=== PATIENT | female | born 1960 | race Caucasian/White ===

== ENCOUNTER → 2017-02-14 | Outpatient (CLI) | payer MEDICARE, MEDICAID | END | disposition home or self-care (01) | LOC: PCVCCLINIC 13:00 | PROVIDERS: ATTEND Internal Medicine Cardiovascular Disease | DX: I44.0 Atrioventricular block, first degree (principal); I10 Essential (primary) hypertension; I48.0 Paroxysmal atrial fibrillation; K21.9 Gastro-esophageal reflux disease without esophagitis; E03.9 Hypothyroidism, unspecified; Z87.891 Personal history of nicotine dependence; Z88.0 Allergy status to penicillin; Z88.2 Allergy status to sulfonamides; Z79.82 Long term (current) use of aspirin | CPT/HCPCS: 36415; 93005; G0463 ==

== ENCOUNTER → 2017-03-14 | Outpatient (CLI) | payer MEDICARE, MEDICAID ==
--- NOTE | 2017-03-14 12:21 | PCVCIMAG ---
APPROVED REPORT Study performed: 03/14/2017 09:02:03 EXAM: Comprehensive 2D, Doppler, and color-flow Echocardiogram Patient Location: Echo lab Status: routine Other Information Study Quality: Good Risk Factors: Cardiac Risk Factors: HTN Indications Paroxysmal A Fib 2D Dimensions LVEF(%): 39.56 (>50%) IVSd: 10.32 (7-11mm) LVDd: 41.19 mm PWd: 9.80 (7-11mm) LVDs: 33.38 (25-40mm) Left Atrium: 37.36 (27-40mm) Aortic Root: 29.67 mm LV Single Plane 4CH: 56.35 % LV Single Plane 2CH: 66.97 %Dinero's LVEF: 61.66 % Biplane EF: 61.9 % Volumes Left Atrial Volume (Systole) Single Plane 4CH: 66.79 mLSingle Plane 2CH: 55.62 mL LA ESV Index: 31.00 mL/m2 Aortic Valve AoV Peak Fredy.: 1.55 m/s AO Peak Gr.: 9.63 mmHgLVOT Max P.00 mmHg LVOT Max V: 0.87 m/s Mitral Valve E/A Ratio: 0.8 MV Decel. Time: 256.90 ms MV E Max Fredy.: 0.70 m/s MV A Fredy.: 0.84 m/s IVRT: 100.35 ms Pulmonary Valve PV Peak Fredy.: 1.11 m/sPV Peak Gr.: 4.94 mmHg Pulmonary Vein P Vein S: 0.28 m/s P Vein D: 0.35 m/s P Vein S/D Ratio: 0.80 Tricuspid Valve TR Peak Fredy.: 2.06 m/s TR Peak Gr.: 16.93 mmHg Left Ventricle The left ventricle is normal size. There is normal LV segmental wall motion. There is normal left ventricular wall thickness. Left ventricular systolic function is normal. The left ventricular ejection fraction is within the normal range. LVEF is 55-60%. Grade I - abnormal relaxation pattern. Right Ventricle The right ventricle is normal size. The right ventricular systolic function is normal. Atria The left atrium size is normal. The right atrium size is normal. Aortic Valve The aortic valve is normal in structure. No aortic regurgitation is present. There is no aortic valvular stenosis. Mitral Valve The mitral valve is normal in structure. There is no mitral valve regurgitation noted. No evidence of mitral valve stenosis. Tricuspid Valve The tricuspid valve is normal in structure. Trace tricuspid regurgitation with PAP of 24 mmHg. Pulmonic Valve The pulmonary valve is normal in structure. There is no pulmonic valvular regurgitation. Great Vessels The aortic root is normal in size. IVC is normal in size and collapses with >50% inspiration Pericardium There is no pericardial effusion. <Conclusion> The left ventricle is normal size. Left ventricular systolic function is normal. Grade I - abnormal relaxation pattern. The right ventricle is normal size. The left atrium size is normal. The aortic valve is normal in structure. Trace tricuspid regurgitation with PAP of 24 mmHg.
== END | disposition home or self-care (01) ==
LOC: PCVCIMAG 08:58
PROVIDERS: ATTEND Internal Medicine Cardiovascular Disease
DX: I07.1 Rheumatic tricuspid insufficiency (principal); I48.0 Paroxysmal atrial fibrillation; I10 Essential (primary) hypertension
CPT/HCPCS: 93306

== ENCOUNTER → 2017-04-29 | Outpatient (CLI) | payer MEDICARE, MEDICAID ==
[~2017-04-29] MED LIST: BENZOCAINE ONE 20% MUCOSAL SPRAY.; IV NORMAL SALINE 1000ML BAG 1,000 ML ONE; MIDAZOLAM HCL/PF 2 MG/2 ML VIAL. ONE; fentaNYL PF VIAL 100 MCG/2 ML VIAL ONE
--- NOTE | 2017-04-29 10:12 | PCVCIMAG ---
APPROVED REPORT Study performed: 04/29/2017 09:16:32 EXAM: Transesophageal Echocardiogram Patient Location: [facility] Status: routine BSA: 2.04 HR: 79 bpmBP: 122/70 mmHg Rhythm: NSR Other Information Study Quality: Good Indications Atrial Fibrillation Pre ablation. Procedure After obtaining informed consent, patient underwent transesophageal echo in the [facility]. Type of Sedation : Conscious Sedation Sedation was administered by Laurel Jason RN. Versed (4mg) Fentanyl (100mcg) Transesophageal probe was inserted and advanced into esophagus without difficulty by Desmond Merino MD. Echo enhancement agent administered: Agitated Saline The MELLO was performed without complications. Throughout the procedure, the blood pressure, pulse oximetry, cardiac rhythm, and rate were monitored. The patient tolerated the procedure without adverse effects. Recovery from conscious sedation was uneventful and vital signs were stable. Left Ventricle The left ventricle is normal size. There is normal LV segmental wall motion. There is normal left ventricular wall thickness. Left ventricular systolic function is normal. The left ventricular ejection fraction is within the normal range. LVEF is 55-60%. Right Ventricle The right ventricle is normal size. The right ventricular systolic function is normal. Atria The left atrium size is normal. No masses or clots in the left atrium or left atrial appendage. No shunting by contrast bubble injection The right atrium size is normal. Aortic Valve The aortic valve is normal in structure. No aortic regurgitation is present. There is no aortic valvular stenosis. Mitral Valve The mitral valve is normal in structure. Mild mitral regurgitation. No evidence of mitral valve stenosis. Tricuspid Valve The tricuspid valve is normal in structure. Trace tricuspid regurgitation. Pulmonic Valve The pulmonary valve is normal in structure. There is no pulmonic valvular regurgitation. Great Vessels The aortic root is normal in size. Mild calcific plaquing Pericardium There is no pericardial effusion. <Conclusion> Left ventricular systolic function is normal. LVEF is 55-60%. Normal LV segmental wall motion. The left atrium size is normal. No masses or clots in the left atrium or left atrial appendage. No shunting by contrast bubble injection The aortic valve is normal in structure. No aortic regurgitation or stenosis The mitral valve is normal in structure. Mild mitral regurgitation. There is no pericardial effusion.
== END | disposition home or self-care (01) ==
LOC: PCVCINTER 08:50
PROVIDERS: ATTEND Internal Medicine
DX: I48.91 Unspecified atrial fibrillation (principal); I08.1 Rheumatic disorders of both mitral and tricuspid valves
CPT/HCPCS: 93312; 93325; 99152; 99153; J2250; J3010; J7030

== ENCOUNTER → 2018-01-23 | Outpatient (CLI) | payer MEDICARE, MEDICAID | END | disposition home or self-care (01) | LOC: PCVCCLINIC 13:17 | DX: I48.91 Unspecified atrial fibrillation (principal); K21.9 Gastro-esophageal reflux disease without esophagitis; I10 Essential (primary) hypertension; Z88.8 Allergy status to other drugs, medicaments and biological substances; Z88.0 Allergy status to penicillin; Z79.899 Other long term (current) drug therapy | CPT/HCPCS: 93005; G0463 ==

== ENCOUNTER → 2018-09-29 | Outpatient (CLI) | payer MEDICARE, MEDICAID ==
--- NOTE | 2018-09-29 11:02 | PCVCIMAG ---
APPROVED REPORT Study performed: 09/29/2018 09:00:51 EXAM: Comprehensive 2D, Doppler, and color-flow Echocardiogram Patient Location: Echo lab Status: routine BSA: 1.87 HR: 75 bpmBP: 120/78 mmHg Rhythm: NSR Other Information Study Quality: Adequate Indications Atrial Fibrillation Hypertension/HDD 2D Dimensions IVSd: 9.06 (7-11mm)LVOT Diam: 18.75 (18-24mm) LVDd: 46.93 mm PWd: 6.55 (7-11mm)Ascending Ao: 28.68 (22-36mm) LVDs: 33.66 (25-40mm) Left Atrium: 35.30 (27-40mm) Aortic Root: 24.15 mm LV Single Plane 4CH: 64.19 % LV Single Plane 2CH: 56.95 % Biplane EF: 60.6 % Volumes Left Atrial Volume (Systole) Single Plane 4CH: 36.36 mLSingle Plane 2CH: 48.52 mL LA ESV Index: 25.00 mL/m2 Aortic Valve AoV Peak Fredy.: 1.59 m/s AO Peak Gr.: 10.14 mmHgLVOT Max P.00 mmHg AO Mean Gr.: 6.71 mmHgLVOT Mean P.46 mmHg AO V2 Mean: 1.26 m/sLVOT Max V: 1.18 m/s AO V2 VTI: 35.28 cmLVOT Mean V: 0.90 m/s JAVI (VTI): 2.17 [id number] V1 VTI: 27.80 cm JAVI Vmax: 2.05 cm2 SV (LVOT): 76.69 mL Mitral Valve E/A Ratio: 1.0 MV Decel. Time: 191.14 ms MV E Max Fredy.: 1.03 m/s MV A Fredy.: 1.03 m/s TDI E/Lateral E': 10.30E/Medial E': 11.44 Medial E' Fredy.: 0.09 m/s Lateral E' Fredy.: 0.10 m/s Pulmonary Valve PV Peak Gr.: 3.93 mmHg Pulmonary Vein P Vein S: 0.68 m/sP Vein A: 0.34 m/s P Vein D: 0.41 m/s P Vein S/D Ratio: 1.66 Tricuspid Valve TR Peak Fredy.: 2.37 m/s TR Peak Gr.: 22.53 mmHg Left Ventricle The left ventricle is normal size. There is normal LV segmental wall motion. There is normal left ventricular wall thickness. Left ventricular systolic function is normal. The left ventricular ejection fraction is within the normal range. LVEF is 60%. Right Ventricle The right ventricle is normal size. The right ventricular systolic function is normal. Atria The left atrium size is normal. The right atrium size is normal. Aortic Valve The aortic valve is normal in structure. No aortic regurgitation is present. There is no aortic valvular stenosis. Mitral Valve The mitral valve is normal in structure. Trace mitral regurgitation. No evidence of mitral valve stenosis. Tricuspid Valve The tricuspid valve is normal in structure. Trace tricuspid regurgitation. Pulmonary artery pressure is 30mmHg. Pulmonic Valve The pulmonary valve is normal in structure. Trace pulmonic regurgitation. Great Vessels The aortic root is normal in size. IVC is normal in size and collapses >50% with inspiration. Pericardium There is no pericardial effusion. <Conclusion> The left ventricle is normal size. There is normal left ventricular wall thickness. Left ventricular systolic function is normal. The right ventricle is normal size. The left atrium size is normal. The right atrium size is normal. The aortic valve is normal in structure. Trace mitral regurgitation. Trace tricuspid regurgitation. Pulmonary artery pressure is 30mmHg.
== END | disposition home or self-care (01) ==
LOC: PCVCIMAG 09:24
PROVIDERS: ATTEND Internal Medicine Cardiovascular Disease
DX: I48.92 Unspecified atrial flutter (principal); I48.0 Paroxysmal atrial fibrillation; R07.9 Chest pain, unspecified; I10 Essential (primary) hypertension; R60.9 Edema, unspecified; Z79.899 Other long term (current) drug therapy; E03.9 Hypothyroidism, unspecified
CPT/HCPCS: 93005; 93306; G0463

== ENCOUNTER → 2018-10-01 | Outpatient (CLI) | payer MEDICARE, MEDICAID ==
[~2018-10-01] MED LIST changes: -BENZOCAINE ONE 20% MUCOSAL SPRAY.; -IV NORMAL SALINE 1000ML BAG 1,000 ML ONE; -MIDAZOLAM HCL/PF 2 MG/2 ML VIAL. ONE; +REGADENOSON 0.4 MG/5 ML DISP.SYRIN. IV ONE; -fentaNYL PF VIAL 100 MCG/2 ML VIAL ONE
--- NOTE | 2018-10-01 15:12 | PCVCIMAG ---
APPROVED REPORT Imaging Protocol: Rest Tc-99m/Stress Tc-99m 1 day Study performed: 10/01/2018 08:36:12 Indication: Chest pain, Dyspnea, Fatigue, Palpitations , Atrial Flutter Patient Location: Out-Patient Stress Nurse: Jazmine Zarate RN, Jeanette Day RN GA Tech:ELMIRA Nguyen Ht: 5 ft 4 in Wt: 180 lbs BSA: 1.87 m2 HR: 76 bpm BP: 119/59 mmHg BMI: 30.89 Rhythm: Sinus Rhythm Medical History Medical History: HTN, Seizure History, Hyperlipidemia, Atrial Fibrillation Medications: Pradaxa, Diltiazem, Lasix, Allergies: Keflex, PCN, Sulfa, Topamax Cardiac Risk Factors: Age Previous Cardiac Procedures: 2017 - Atrial Fibrillation Ablation Pretest Chest Pain Characteristics: No chest pain Exercise History: Physically active Resting Data Rest SPECT myocardial perfusion imaging was performed in supine position 45 minutes following the intravenous injection of 10.3 mCi of Tc-99m Sestamibi. Time of rest injection: 0800 Administration Route: IV Administration Site: Right AC Pharmacologic Stress Pharmacologic stress test was performed by injecting Regadenoson 0.4 mg IV push over 10-15 seconds immediately followed by the intravenous injection of 33.8 mCi of Tc-99m Sestamibi. Time of stress injection: 0915 Date: 10/01/2018 Administration Route: IV Administration Site: Right AC Gated Stress SPECT was performed 45 minutes after stress injection. The images were gated to evaluate regional wall motion and calculate left ventricular ejection fraction. Stress Test Details Stress Test: Pharmacologic stress testing performed using 0.4 mg of regadenoson per 5 mL given IV over 10 seconds. Reason for pharmacologic stress test: Spinal Stenosis. HRMax Heart Rate (APMHR): 160 bpm Resting HR: 76 bpmTarget HR (85% APMHR): 136 bpm Max HR Achieved: 99 bpm % of APMHR: 61 Recovery HR: 88 bpm BP Resting BP: 119/59 mmHg Max BP: 121/57 mmHg Recovery BP: 112/56 mmHg ECG Resting ECG: Sinus Rhythm Stress ECG: Sinus Rhythm ST Change: Non-ischemic Recovery ECG: Sinus Rhythm Clinical Reason for Termination: Completed protocol Stress Symptoms: Dyspnea, Abdominal discomfort Exercise duration: 0 min 55 sec Symptoms resolved with caffeine. Study Quality Study: Good Artifact: Mild Diaphragmatic artifact Study Data Post stress, the left ventricular ejection was 74%.. SSS: 4 SRS: 5 SDS: 0 TID = 1.13. Perfusion There is a small area of mildly reduced uptake in the apical segment of the inferior wall which is seen on the stress images as well as the resting images. This area thickens and moves normally and is most consistent with attenuation artifact. Wall Motion Normal left ventricular wall motion. Nuclear Conclusion ECG Findings: negative for ischemia Clinical Findings: non-diagnostic Nuclear Findings: negative for ischemia Exercise Capacity: not assessed Left Ventricular Function: normal This study is of low probability for inducible ischemia or prior infarct. Normal global and segmental LV systolic function. Artifact: Mild Diaphragmatic artifact
== END | disposition home or self-care (01) ==
LOC: PCVCIMAG 07:50
PROVIDERS: ATTEND Internal Medicine Cardiovascular Disease
DX: I48.92 Unspecified atrial flutter (principal); R00.2 Palpitations; I48.91 Unspecified atrial fibrillation; R06.09 Other forms of dyspnea; R07.9 Chest pain, unspecified; R53.83 Other fatigue
CPT/HCPCS: 78452; 93017; A9500; J2785

== ENCOUNTER → 2018-10-02 | Outpatient (CLI) | payer MEDICARE, MEDICAID | END | disposition home or self-care (01) | LOC: PCVCCLINIC 10:31 | PROVIDERS: ATTEND Internal Medicine Cardiovascular Disease | DX: I48.0 Paroxysmal atrial fibrillation (principal); R07.9 Chest pain, unspecified; R06.09 Other forms of dyspnea; I10 Essential (primary) hypertension; Z79.899 Other long term (current) drug therapy | CPT/HCPCS: G0463 ==

== ENCOUNTER → 2019-04-02 | Outpatient (CLI) | payer MEDICARE, MEDICAID | END | disposition home or self-care (01) | LOC: PCVCCLINIC 14:45 | PROVIDERS: ATTEND Internal Medicine Cardiovascular Disease | DX: I48.0 Paroxysmal atrial fibrillation (principal); I10 Essential (primary) hypertension; K21.9 Gastro-esophageal reflux disease without esophagitis; R06.09 Other forms of dyspnea; Z88.8 Allergy status to other drugs, medicaments and biological substances | CPT/HCPCS: 93005; G0463 ==